=== PATIENT | female | born 1985 | race Caucasian/White ===

== ENCOUNTER 2020-08-21 13:49 | Inpatient (IN) ==
[2020-08-21 15:05] LABS: Urine Appearance Clear; Urine Bilirubin Negative (Negative); Urine Blood Negative (Negative); Urine Color Yellow; Urine Glucose Negative (Negative); Urine Ketones Trace (Negative); Urine Nitrite Negative (Negative); Urine Protein Negative (Negative); Urine Specific Gravity 1.015 (1.010-1.030); Urine Urobilinogen Positive (Negative)
[2020-08-21 15:18] LABS: ABS Lymphocytes 1.2 10^3/ul (1.0-4.8); ABS Monocytes 0.6 10^3/ul (0-0.8); ABS Neutrophils 4.7 10^3/ul (1.5-7.7); Eosinophil % 0.4 %; Hematocrit 37 % (35-47); Hemoglobin 12.1 g/dL (12.0-16.0); Lymphocyte % 18.9 %; Mean Corpuscular HGB Conc 33 g/dL (31-36); Mean Corpuscular Hemoglobin 32 pg (27-31); Mean Corpuscular Volume 97 fL (80-97); Mean Platelet Volume 10.1 fL (7.4-10.4); Platelet Count 272 10^3/uL (150-450); Red Blood Count 3.77 10^6 /uL (3.70-4.87); Red Cell Distribution Width 13 % (10-15); White Blood Count 6.6 10^3/uL (3.5-10.8)
[2020-08-21 15:20] LABS: HCG Pregnancy < 0.60 mIU/mL
[2020-08-21 15:38] LABS: ALT 36 U/L (7-52); AST 29 U/L (13-39); Albumin 4.3 g/dL (3.2-5.2); Albumin/Globulin Ratio 1.3 (1-3); Alkaline Phosphatase 101 U/L (34-104); Anion Gap 7 mmol/L (2-11); BUN/Creatinine Ratio 14.8 (8-20); Blood Urea Nitrogen 9 mg/dL (6-24); CO2 Carbon Dioxide 28 mmol/L (22-32); Chloride 102 mmol/L (101-111); EGFR African American 135.9 (>60); EGFR Non-African American 112.3 (>60); Globulin 3.2 g/dL (2-4); Glucose 95 mg/dL (70-100); Potassium 3.7 mmol/L (3.5-5.0); Sodium 137 mmol/L (135-145); Total Protein 7.5 g/dL (6.4-8.9)
[2020-08-21 15:40] LABS: Urine Benzodiazepine Screen None Detected (None Detect); Urine Cannabinoids Screen None Detected (None Detect); Urine Opiates Screen None Detected (None Detect)
[2020-08-21 15:56] LABS: TSH Ultra Thyroid Stim Horm 0.31 mcIU/mL (0.34-5.60)
[2020-08-21 16:01] LABS: Acetaminophen < 15 mcg/mL; Alcohol, S < 10 mg/dL (<10); Salicylate < 2.50 mg/dL (<30)
[2020-08-21 17:12] LABS: HIV 4th Generation Nonreactive (Nonreactive)
[2020-08-21] MEDS ORDERED: Al Hydrox/Mg Hydrox/Simet LIQ 30 ML UDC PO PRN (22:06)
[2020-08-22 08:42] LABS: HDL Cholesterol 36.2 mg/dL
[2020-08-22] MEDS: Venlafaxine XR 75 mg PO SCH (11:31)
[2020-08-22] MEDS: Vitamin THERAPEUTIC TAB PO SCH (11:31)
[2020-08-22] MEDS: Buprenorp/Nalox 8-2 MG FILM SL FILM SCH (11:34)
[2020-08-22] MEDS ORDERED: Buprenorp/Nalox 8-2 MG FILM SL FILM SCH (12:00)
[2020-08-22] MEDS: Buprenorp/Nalox 4-1 MG FILM SL FILM SCH (22:02)
[2020-08-23] MEDS: Buprenorp/Nalox 8-2 MG FILM SL FILM SCH (08:41)
[2020-08-23] MEDS: Vitamin THERAPEUTIC TAB PO SCH (08:42)
[2020-08-23] MEDS: Venlafaxine XR 75 mg PO SCH (08:42)
[2020-08-23] MEDS: Nicotine PATCH 21 MG/24 HR PATCH TRANSDERM SCH (16:08)
[2020-08-23] MEDS: Buprenorp/Nalox 4-1 MG FILM SL FILM SCH (21:31)
[2020-08-24] MEDS: Venlafaxine XR 75 mg PO SCH (09:00)
[2020-08-24] MEDS: Vitamin THERAPEUTIC TAB PO SCH (09:00)
[2020-08-24] MEDS ORDERED: Venlafaxine XR 75 mg PO SCH (09:00)
[2020-08-24] MEDS: Nicotine PATCH 21 MG/24 HR PATCH TRANSDERM SCH (09:03)
[2020-08-24] MEDS: Buprenorp/Nalox 8-2 MG FILM SL FILM SCH (09:04)
[2020-08-24] MEDS: Buprenorp/Nalox 4-1 MG FILM SL FILM SCH (21:37)
[2020-08-25] MEDS: Vitamin THERAPEUTIC TAB PO SCH (08:38)
[2020-08-25] MEDS: Nicotine PATCH 21 MG/24 HR PATCH TRANSDERM SCH (08:39)
[2020-08-25] MEDS: Buprenorp/Nalox 8-2 MG FILM SL FILM SCH (08:39)
[2020-08-25] MEDS: Venlafaxine XR 75 mg PO SCH (08:39)
[2020-08-25] MEDS: Buprenorp/Nalox 4-1 MG FILM SL FILM SCH (20:40)
[2020-08-26] MEDS ORDERED: Influenza VAC *QUAD* 2020-21* 0.5 ML SYRINGE IM ONE (09:00)
[2020-08-26] MEDS: Venlafaxine XR 75 mg PO SCH (09:23)
[2020-08-26] MEDS: Vitamin THERAPEUTIC TAB PO SCH (09:23)
[2020-08-26] MEDS: Buprenorp/Nalox 8-2 MG FILM SL FILM SCH (09:25)
[2020-08-26] MEDS: Nicotine PATCH 21 MG/24 HR PATCH TRANSDERM SCH (11:05)
[2020-08-26] MEDS: Buprenorp/Nalox 4-1 MG FILM SL FILM SCH (20:21)
[2020-08-27] MEDS: Venlafaxine XR 75 mg PO SCH (08:55)
[2020-08-27] MEDS: Vitamin THERAPEUTIC TAB PO SCH (08:55)
[2020-08-27 08:56] VITALS: BP 102/75
[2020-08-27] MEDS: Nicotine PATCH 21 MG/24 HR PATCH TRANSDERM SCH (08:58)
[2020-08-27] MEDS: Buprenorp/Nalox 8-2 MG FILM SL FILM SCH (08:58)
== END 2020-08-27 12:10 | disposition home or self-care (01) | DRG 773 ==
LOC: ED 13:49 → BSU 18:27
PROVIDERS: ADMIT Psychiatry & Neurology Psychiatry; ATTEND Psychiatry & Neurology Psychiatry